=== PATIENT | female | born 1955 | race Caucasian/White ===

== ENCOUNTER 2024-11-03 12:19 | Emergency (ER) | payer OTHER, MEDICARE ==
[~2024-11-03] VITALS: Ht 160 cm; Wt 89.8 kg
[2024-11-03] MEDS ORDERED: TiZANidine HCl 4 MG Tab PO ONE (14:25)
[2024-11-03] MEDS ORDERED: Ketorolac Tromethamine 15mg Vial IM ONE (14:30)
[2024-11-03 15:48] VITALS: BP 104/65
[2024-11-03] MEDS ORDERED: TIZA4 PO (16:11)
[2024-11-03] MEDS ORDERED: LIDO700A20 TOP (16:11)
== END 2024-11-03 16:30 | disposition home or self-care (01) ==
LOC: ER 12:19
DX: M62.838 Other muscle spasm (principal); M25.512 Pain in left shoulder; Z87.891 Personal history of nicotine dependence; Z59.89 Other problems related to housing and economic circumstances; W01.0XXA Fall on same level from slipping, tripping and stumbling without subsequent striking against object, initial encounter
CPT/HCPCS: 73030; 96372; 99283-25; A9270; J1885

== ENCOUNTER 2024-11-09 08:05 | Emergency (ER) | payer MEDICARE ==
[~2024-11-09] VITALS: Ht 160 cm; Wt 88.0 kg
[~2024-11-09 08:05] MED LIST: LIDO700A20 TOP; TIZA4 PO
[2024-11-09] MEDS ORDERED: HYDROmorphone HCl/Pf 1MG SYR IM ONE (08:30)
[2024-11-09] MEDS ORDERED: Ketorolac Tromethamine 15mg Vial IM ONE (08:30)
[2024-11-09 09:00] VITALS: BP 149/94
[2024-11-09] MEDS ORDERED: CYCL10 PO (10:40)
== END 2024-11-09 10:48 | disposition home or self-care (01) ==
LOC: ER 08:05
DX: M43.6 Torticollis (principal); M25.511 Pain in right shoulder; Z87.891 Personal history of nicotine dependence; Z88.0 Allergy status to penicillin
CPT/HCPCS: 72125; 93005; 93010; 96372; 99284-25; J1171; J1885

== ENCOUNTER 2025-04-11 12:22 | Emergency (ER) | payer MEDICARE ==
[~2025-04-11] VITALS: Ht 160 cm; Wt 84.8 kg
[~2025-04-11 12:22] MED LIST changes: +CYCL10 PO
[2025-04-11 13:25] LABS: BASOPHILS ABSOLUTE AUTO 0.05 K/mm3 (0.00-0.23); BASOPHILS PERCENT AUTO 1 % (0-2); EOSINOPHILS ABSOLUTE AUTO 0.07 K/mm3 (0.00-0.68); EOSINOPHILS PERCENT AUTO 1 % (0-6); Hematocrit 45.6 % (33.0-51.0); Hemoglobin 14.9 g/dL (11.5-16.0); IMMATURE GRAN ABSOLUTE AUTO 0.03 K/mm3 (0.00-0.10); IMMATURE GRAN PERCENT AUTO 0 % (0-1); LYMPHOCYTES ABSOLUTE AUTO 2.14 K/mm3 (0.84-5.20); LYMPHOCYTES PERCENT AUTO 25 % (21-46); MONOCYTES ABSOLUTE AUTO 0.58 K/mm3 (0.16-1.47); MONOCYTES PERCENT AUTO 7 % (4-13); Mean Corpuscular HGB Conc 32.7 g/dL (31.5-36.5); Mean Corpuscular Volume 99 fL (80-100); NEUTROPHILS ABSOLUTE AUTO 5.57 K/mm3 (1.96-9.15); NEUTROPHILS PERCENT AUTO 66 % (41-73); NRBC ABSOLUTE 0.00 K/mm3 (0.00-0.02); NRBC Auto 0.0 /100 WBC (0.0-0.2); Platelet Count 191 K/mm3 (150-400); RDW Coefficient Variation 12.2 % (11.7-14.2); RDW Standard Deviation 44.6 fL (35.1-46.3)
[2025-04-11 13:51] LABS: Alanine Aminotransfer (ALT/SGP 21.0 U/L (12-78); Albumin, Blood 3.9 g/dL (3.4-5.0); Albumin/Globulin Ratio 1.1 (0.8-1.8); Anion Gap 7.0 mmol/L (3-11); Aspartate Aminotrans (AST/SGOT 19.0 U/L (12-37); Bilirubin, Total 0.5 mg/dL (0.1-1.0); Blood Urea Nitrogen 12.0 mg/dL (8-24); CO2, Blood 26.0 mmol/L (21-32); Calcium, Blood 8.7 mg/dL (8.5-10.1); Chloride, Blood 108.0 mmol/L (98-108); Creatinine, Blood 0.77 mg/dL (0.40-1.00); Globulin, Blood 3.7 g/dL (2.2-4.0); Glucose, Blood 89.0 mg/dL (70-99); Potassium, Blood 4.2 mmol/L (3.5-5.5); Sodium, Blood 137.0 mmol/L (136-145); Total Protein, Blood 7.6 g/dL (6.4-8.2)
[2025-04-11] MEDS ORDERED: Ondansetron HCl 2 MG / ML 2ML Vial IV ONE (15:25)
[2025-04-11] MEDS ORDERED: Ondansetron 4 MG SoluTab SL ONE (15:30)
[2025-04-11] MEDS ORDERED: Norvasc5 MG PO (16:01)
[2025-04-11 16:37] VITALS: BP 157/57
== END 2025-04-11 16:39 | disposition home or self-care (01) ==
LOC: ER 12:22
PROVIDERS: Emergency Medicine
DX: H53.8 Other visual disturbances (principal); R42 Dizziness and giddiness; R51.9 Headache, unspecified; R07.89 Other chest pain; T50.905A Adverse effect of unspecified drugs, medicaments and biological substances, initial encounter; Z88.0 Allergy status to penicillin; Z79.899 Other long term (current) drug therapy
CPT/HCPCS: 70450; 80053; 84484; 85025; 93005; 93010; 96374; 99284-25; A9270; J2405